=== PATIENT | male | born 1985 | race Caucasian/White ===

== ENCOUNTER 2016-05-21 13:59 | Emergency (ER) | payer OTHER ==
[~2016-05-21] VITALS: Ht 188 cm; Wt 86.2 kg
[2016-05-21 14:11] VITALS: BP 144/107
--- NOTE | 2016-05-21 14:29 | NUR ---
Patient ambulated to bed 08.
--- NOTE | 2016-05-21 14:38 | NUR ---
Patient to XRAY via wheelchair per tech.
--- NOTE | 2016-05-21 14:44 | NUR ---
Patient back from XRAY via wheelchair per tech.
--- NOTE | 2016-05-21 14:55 | NUR ---
PATIENT PRESENTS TO ED WITH C/O RIGHT 4TH DIGIT INJURY, PT. STATES HE INJURED APPROX 45 MIN AGO PLAYING FOOTBALL. DENIES N/V/D; SKIN IS PINK/WARM/DRY; AAOX4 WITH EVEN AND STEADY GAIT; LUNGS CLEAR BL; HR EVEN AND REGULAR; PT DENIES ANY FEVER, CP, SOB, OR COUGH AT THIS TIME; PATIENT STATES PAIN OF 0/10 AT THIS TIME; VSS; PATIENT POSITIONED FOR COMFORT; HOB ELEVATED; BEDRAILS UP X2; BED DOWN. ER MD MADE AWARE OF PT STATUS.
[2016-05-21 15:41] VITALS: BP 119/72
== END 2016-05-21 15:41 | disposition home or self-care (01) ==
LOC: MED 14:20
DX: S62.604A Fracture of unspecified phalanx of right ring finger, initial encounter for closed fracture (principal); R03.0 Elevated blood-pressure reading, without diagnosis of hypertension; W51.XXXA Accidental striking against or bumped into by another person, initial encounter; Y93.61 Activity, american tackle football; Y92.89 Other specified places as the place of occurrence of the external cause; Y99.8 Other external cause status